=== PATIENT | male | born 1970 | race Caucasian/White ===

== ENCOUNTER 2019-06-13 21:40 | Observation (INO) | payer BC ==
[2019-06-13] MEDS ORDERED: Aspirin 81 MG Tab.Chew PO ONE ×2 (21:53→21:54)
[2019-06-13] MEDS ORDERED: Sodium Chloride 0.9% 1,000 ML IV ONE (21:54)
[2019-06-13] MEDS ORDERED: Sodium Chloride 0.9% 10 ML Syringe FLUSH PRN (21:54)
[2019-06-13] MEDS ORDERED: Nitroglycerin 2% Oint 1 GM UD Packet TOP ONE (21:54)
--- NOTE | 2019-06-13 22:05 | EDM.PDOC ---
ED HPI GENERAL MEDICAL PROBLEM - General Chief Complaint: Chest Pain Stated Complaint: CHEST PAIN Time Seen by Provider: 06/13/19 21:45 Source of Information: Reports: Patient History Limitations: Reports: No Limitations - History of Present Illness INITIAL COMMENTS - FREE TEXT/NARRATIVE: 48 YO WM presents to ER complaining of substernal chest pain which began approximately 2 hours ago. Pt reports he was watching a basketball game when he developed mild chest discomfort. Pt reports he thought it was related to work activity and muscle soreness. Pt was on his way home and began to feel lightheaded and nauseated. became concerned and brought him directly to ER for evaluation. Pt reports symptoms have resolved with minimal discomfort in his chest which he rates as a 2/10. Pt denies sob, or diaphoresis. Pt with PMH of dyslipidemia and HTN. Onset Date: 06/13/19 Onset Time: 20:00 Location: Reports: Chest Quality: Reports: Dull Severity: Mild Improves with: Reports: None Worsens with: Reports: None Associated Symptoms: Reports: Chest Pain, Nausea/Vomiting. Denies: Cough, Diaphoresis, Fever/Chills, Headaches, Shortness of Breath Chest Pain Score (Numeric/FACES): 4 - Related Data Allergies Allergy/AdvReac Type Severity Reaction Status Date / Time No Known Allergies Allergy Verified 06/13/19 21:53 Home Meds: Home Meds lisinopriL [Lisinopril] 10 mg PO DAILY 06/13/19 [History] ED ROS GENERAL - Review of Systems Review Of Systems: See Below Constitutional: Reports: No Symptoms HEENT: Reports: No Symptoms Respiratory: Reports: No Symptoms Cardiovascular: Reports: Chest Pain, Lightheadedness Endocrine: Reports: No Symptoms GI/Abdominal: Reports: Nausea : Reports: No Symptoms Musculoskeletal: Reports: No Symptoms Skin: Reports: No Symptoms Neurological: Reports: No Symptoms Psychiatric: Reports: No Symptoms Hematologic/Lymphatic: Reports: No Symptoms Immunologic: Reports: No Symptoms ED EXAM, GENERAL - Physical Exam Exam: See Below Exam Limited By: No Limitations General Appearance: Alert, WD/WN, No Apparent Distress Nose: Normal Inspection, Normal Mucosa, No Blood Throat/Mouth: Normal Inspection, Normal Lips, Normal Teeth, Normal Gums, Normal Oropharynx, Normal Voice, No Airway Compromise Head: Atraumatic, Normocephalic Neck: Normal Inspection, Supple, Non-Tender, Full Range of Motion Respiratory/Chest: No Respiratory Distress, Lungs Clear, Normal Breath Sounds, No Accessory Muscle Use, Chest Non-Tender Cardiovascular: Normal Peripheral Pulses, Regular Rate, Rhythm, No Edema, No Gallop, No JVD, No Murmur, No Rub GI/Abdominal: Normal Bowel Sounds, Soft, Non-Tender, No Organomegaly, No Distention, No Abnormal Bruit, No Mass Back Exam: Normal Inspection, Full Range of Motion, NT Extremities: Normal Inspection, Normal Range of Motion, Non-Tender, Normal Capillary Refill, No Pedal Edema Neurological: Alert, Oriented, CN II-XII Intact, Normal Cognition, Normal Gait, Normal Reflexes, No Motor/Sensory Deficits Psychiatric: Normal Affect, Normal Mood Skin Exam: Warm, Dry, Intact, Normal Color, No Rash Lymphatic: No Adenopathy EKG INTERPRETATION EKG Date: 06/13/19 Time: 21:41 Rhythm: NSR Rate (Beats/Min): 69 [place]: Normal P-Wave: Present QRS: Normal ST-T: Normal QT: Normal Comparison: NA - No Prior EKG Course - Vital Signs Last Recorded V/S: Last Vital Signs Temp 36.3 C 06/13/19 21:52 Pulse 77 06/13/19 22:24 Resp 16 06/13/19 22:24 BP 144/86 H 06/13/19 22:24 Pulse Ox 99 06/13/19 22:24 - Orders/Labs/Meds Orders: Active Orders 24 hr Category Date Time Status EKG Documentation Completion [RC] ASDIRECTED Care 06/13/19 21:54 Active Peripheral IV Care [RC] . DIRECTED Care 06/13/19 21:54 Active Chest 2V [CR] Stat Exams 06/13/19 21:54 Ordered Sodium Chloride 0.9% [Normal Saline] 1,000 ml Med 06/13/19 21:54 Active IV .BOLUS Sodium Chloride 0.9% [Saline Flush] Med 06/13/19 21:54 Active 10 ml FLUSH Q8HR PRN Peripheral IV Insertion Adult [OM.PC] Routine Oth 06/13/19 21:54 Ordered EKG 12 Lead [EK] Routine Ther 06/13/19 21:54 Ordered Medication Orders Sodium Chloride (Normal Saline) 1,000 mls @ 999 mls/hr IV .BOLUS ONE Stop: 06/13/19 22:54 Last Admin: 06/13/19 22:17 Dose: 999 mls/hr Sodium Chloride (Saline Flush) 10 ml FLUSH Q8HR PRN PRN Reason: keep vein open Labs: Laboratory Tests 06/13/19 06/13/19 Range/Units 21:50 21:50 WBC 7.23 (5.00-10.00) 10^3/uL RBC 4.58 (4.50-6.00) 10^6/uL Hgb 14.2 (13.0-17.0) g/dL Hct 41.1 (40.0-52.0) % MCV 89.7 (82.0-92.0) fL MCH 31.0 (27.0-31.0) pg MCHC 34.5 (32.0-36.0) g/dL RDW 12.5 (11.5-14.5) % Plt Count 222 (150-400) 10^3/uL MPV 8.8 (7.4-10.4) fL Immature Gran % (Auto) 0.3 (0.0-5.0) % Neut % (Auto) 57.9 (50.0-70.0) % Lymph % (Auto) 26.8 (20.0-40.0) % [place] % (Auto) 11.5 H (2.0-8.0) % Eos % (Auto) 2.9 (1.0-3.0) % Baso % (Auto) 0.6 (0.0-1.0) % Immature Gran # (Auto) 0.02 (0.00-0.50) 10^3/uL Neut # (Auto) 4.19 (2.50-7.00) 10^3/uL Lymph # (Auto) 1.94 (1.00-4.00) 10^3/uL [place] # (Auto) 0.83 H (0.10-0.80) 10^3/uL Eos # (Auto) 0.21 (0.10-0.30) 10^3/uL Baso # (Auto) 0.04 (0.00-0.10) 10^3/uL Sodium 143 (136-145) mmol/L Potassium 3.8 (3.3-5.3) mmol/L Chloride 105 (98-115) mmol/L Carbon Dioxide 27.1 (21.0-32.0) mmol/L Anion Gap 14.7 (5-15) mmol/L BUN 19 (6-25) mg/dL Creatinine 1.19 H (0.51-1.17) mg/dL Est Cr Clr Drug Dosing 79.10 mL/min Estimated GFR (MDRD) > 60 mL/min Glucose 93 (75 - 99) mg/dL Calcium 9.2 (8.7-10.3) mg/dL Total Bilirubin 0.4 (0.2-1.0) mg/dL AST 21 (15-37) U/L ALT 28 (12-78) U/L Alkaline Phosphatase 78 (46-116) IU/L Creatine Kinase 179 (26-276) U/L CK-MB (CK-2) 1.50 (0.00-4.30) ng/mL Troponin I 0.05 (0.00-0.070) ng/mL Total Protein 7.4 (6.4-8.2) g/dL Albumin 3.61 (3.00-4.80) g/dL Meds: Medications Generic Name Dose Route Start Last Admin Trade Name Freq PRN Reason Stop Dose Admin Sodium Chloride 1,000 mls @ 999 mls/hr 06/13/19 21:54 06/13/19 22:17 Normal Saline IV 06/13/19 22:54 999 mls/hr .BOLUS ONE Administration Sodium Chloride 10 ml 06/13/19 21:54 Saline Flush FLUSH Q8HR PRN keep vein open Discontinued Medications Generic Name Dose Route Start Last Admin Trade Name Freq PRN Reason Stop Dose Admin Aspirin 324 mg 06/13/19 21:53 06/13/19 22:01 Aspirin PO 06/13/19 21:54 324 mg ONETIME ONE Administration Aspirin 324 mg 06/13/19 21:54 06/13/19 22:16 Aspirin PO 06/13/19 21:55 Not Given ONETIME ONE Nitroglycerin 1 gm 06/13/19 21:54 06/13/19 22:17 Nitro-Bid 2% TOP 06/13/19 21:55 1 gm ONETIME ONE Administration - Radiology Interpretation Free Text/Narrative:: CXR- NAD - Re-Assessments/Exams Free Text/Narrative Re-Assessment/Exam: 06/13/19 22:41 Pt is chest pain free at this time. Discussed recommendation for admission with patient who is agreeable. Discussed with Dr Raj Rodriguez who accepted admission and provided below orders: 1. lovenox 1mg/kg SQ Q12 2. Plavix 75mg PO once 3. Nitropaste 1" Q6 4. repeat Trop I Q4 x 3 Departure - Departure Time of Disposition: 22:43 Disposition: Refer to Observation Condition: Good Clinical Impression: Chest pain Referrals: Terry Morton RENAL DIALYSIS TECHNICIAN [Primary Care Provider] - Forms: ED Department Discharge Sepsis Event Note - Evaluation Sepsis Screening Result: No Definite Risk - Focused Exam Vital Signs: Vital Signs Temp Pulse Resp BP Pulse Ox 06/13/19 22:24 77 16 144/86 H 99 06/13/19 21:52 36.3 C 76 16 135/83 97 Date Exam was Performed: 06/13/19 Time Exam was Performed: 22:41 - My Orders Last 24 Hours: My Active Orders 06/13/19 21:54 EKG Documentation Completion [RC] ASDIRECTED Peripheral IV Care [RC] . DIRECTED Chest 2V [CR] Stat Sodium Chloride 0.9% [Normal Saline] 1,000 ml IV .BOLUS Sodium Chloride 0.9% [Saline Flush] 10 ml FLUSH Q8HR PRN Peripheral IV Insertion Adult [OM.PC] Routine EKG 12 Lead [EK] Routine - Assessment/Plan Last 24 Hours: My Active Orders 06/13/19 21:54 EKG Documentation Completion [RC] ASDIRECTED Peripheral IV Care [RC] . DIRECTED Chest 2V [CR] Stat Sodium Chloride 0.9% [Normal Saline] 1,000 ml IV .BOLUS Sodium Chloride 0.9% [Saline Flush] 10 ml FLUSH Q8HR PRN Peripheral IV Insertion Adult [OM.PC] Routine EKG 12 Lead [EK] Routine Assessment:: 1. Chest Pain Plan: admit for obs- Dr Anthony 1. lovenox 1mg/kg SQ Q12 2. Plavix 75mg PO once 3. Nitropaste 1" Q6 4. repeat Trop I Q4 x 3
[2019-06-13 22:28] LABS: ANION GAP 14.7 mmol/L (5-15); CHLORIDE,CL 105 mmol/L (98-115); SODIUM,NA 143 mmol/L (136-145)
[2019-06-13] MEDS ORDERED: Clopidogrel 75 MG Tab PO ONE (22:53)
[2019-06-14] MEDS: Nitroglycerin 2% Oint 1 GM UD Packet TOP SCH ×2 (00:05→04:26)
--- NOTE | 2019-06-14 07:44 | CR ---
[id number] RAD/RAD Chest PA And Lateral EXAM: FRONTAL AND LATERAL CHEST INDICATION: PAIN COMPARISON: None. DISCUSSION: The lungs are hypoinflated with mild bibasilar atelectasis no definite infiltrates. Gas-filled mildly ectatic bowel loops in the upper abdomen are partially characterized. Normal heart size. IMPRESSION: 1. Low lung volumes with bibasilar atelectasis. Jimmy Fonseca MD 06/14/19 0741 Thank you for allowing us to participate in the care of your patient.
[2019-06-14] MEDS ORDERED: Acetaminophen 325 MG Tab PO ONE (10:21)
--- NOTE | 2019-06-14 12:01 | PCM.DCSUM1 ---
Discharge Summary - Hospital Course Free Text/Narrative:: Date of admission: 06/13/19 Date of discharge: 06/14/19 Admission diagnoses: Chest pain HTN HLD Discharge diagnoses: Chest pain Costochondritis HTN HLD Uvulitis Family history of bicuspid aortic valve Consultations: None Procedures: None Hospital course: Mr. Mehta is a 48yoM with a hx of HTN and HLD who reports that he began having R sternal chest pain in the evening of 06/13/19 after work while watching a basketball game. 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 ED for evaluation. Upon arrival, he reported 2/10 severity pain and was given nitroglycerin and ASA. Pain improved, but was mainly present on palpation of the R side of the sternum. Initial evaluation with CBC, CMP, troponin, EKG, and CXR was normal except for CXR showing bibasilar atelectasis with low lung volumes. He was admitted to observation status for serial troponin measurements and cardiac monitoring. He was given enoxaparin 1mg/kg q12h, clopidogrel 75mg po x1, and nitropaste 1+ q6h. He had no worsening of chest pain, which only was then present with palpation of the R sternal border. No new symptoms except for headache since being started on nitroglycerin and sore throat; headache improved with removal of nitroglycerin and administration of Tylenol; sore throat attributed to uvulitis. Telemetry without concerns. Troponin negative x3. Lipid panel obtained; ASCVD 10-year risk 5.3%. Etiology of chest pain felt to be costochondritis for which supportive cares were discussed. Discharge and follow-up recommendations: - Discharge to home - Medication changes at discharge: - Augmentin 875/125mg po BID x 10 days for uvulitis - Follow-up with PCP Terry Morton APRN-CHRISTINA, within the next week - Recommend echo for screening for bicuspid aortic valve given 1st degree family history in father NOTE: This is a same day admission and discharge. - Discharge Data Discharge Date: 06/14/19 Discharge Disposition: Home, Self-Care 01 Condition: Good - Referral to Home Health Primary Care Physician: Terry Morton NP - Patient Instructions Diet: Heart Healthy Diet Activity: As Tolerated Driving: May Drive Today Showering/Bathing: May Shower Notify Provider of: Fever, Increased Pain - Discharge Plan *PRESCRIPTION DRUG MONITORING PROGRAM REVIEWED*: Not Applicable *COPY OF PRESCRIPTION DRUG MONITORING REPORT IN PATIENT SUZAN: Not Applicable Prescriptions/Med Rec: Amoxicillin/Clavulanate K [Augmentin 875-125 MG] 1 tab PO BID 10 Days #20 tablet Home Medications: Home Meds lisinopriL [Lisinopril] 10 mg PO DAILY 06/13/19 [History] Amoxicillin/Clavulanate K [Augmentin 875-125 MG] 1 tab PO BID 10 Days #20 tablet 06/14/19 [Rx] Referrals: Terry Morton UNIVERSAL WINDING MACHINE OPERATOR [Primary Care Provider] - (Call clinic to schedule appt the week of 06/19/19.) - Discharge Summary/Plan Comment DC Time >30 min.: Yes - Patient Data Vitals - Most Recent: Last Vital Signs Temp 36.2 C 06/14/19 11:00 Pulse 76 06/14/19 11:00 Resp 20 06/14/19 11:00 BP 121/77 06/14/19 11:00 Pulse Ox 96 06/14/19 11:00 Weight - Most Recent: 88.36 kg I&O - Last 24 hours: Intake & Output 06/13/19 06/14/19 06/14/19 22:59 06:59 14:59 Intake Total 125 Balance 125 Lab Results - Last 24 hrs: Laboratory Results - last 24 hr 06/13/19 06/13/19 06/14/19 Range/Units 21:50 21:50 04:20 WBC 7.23 (5.00-10.00) 10^3/uL RBC 4.58 (4.50-6.00) 10^6/uL Hgb 14.2 (13.0-17.0) g/dL Hct 41.1 (40.0-52.0) % MCV 89.7 (82.0-92.0) fL MCH 31.0 (27.0-31.0) pg MCHC 34.5 (32.0-36.0) g/dL RDW 12.5 (11.5-14.5) % Plt Count 222 (150-400) 10^3/uL MPV 8.8 (7.4-10.4) fL Immature Gran % (Auto) 0.3 (0.0-5.0) % Neut % (Auto) 57.9 (50.0-70.0) % Lymph % (Auto) 26.8 (20.0-40.0) % [place] % (Auto) 11.5 H (2.0-8.0) % Eos % (Auto) 2.9 (1.0-3.0) % Baso % (Auto) 0.6 (0.0-1.0) % Immature Gran # (Auto) 0.02 (0.00-0.50) 10^3/uL Neut # (Auto) 4.19 (2.50-7.00) 10^3/uL Lymph # (Auto) 1.94 (1.00-4.00) 10^3/uL [place] # (Auto) 0.83 H (0.10-0.80) 10^3/uL Eos # (Auto) 0.21 (0.10-0.30) 10^3/uL Baso # (Auto) 0.04 (0.00-0.10) 10^3/uL Sodium 143 (136-145) mmol/L Potassium 3.8 (3.3-5.3) mmol/L Chloride 105 (98-115) mmol/L Carbon Dioxide 27.1 (21.0-32.0) mmol/L Anion Gap 14.7 (5-15) mmol/L BUN 19 (6-25) mg/dL Creatinine 1.19 H (0.51-1.17) mg/dL Est Cr Clr Drug Dosing 79.10 mL/min Estimated GFR (MDRD) > 60 mL/min Glucose 93 (75 - 99) mg/dL Calcium 9.2 (8.7-10.3) mg/dL Total Bilirubin 0.4 (0.2-1.0) mg/dL AST 21 (15-37) U/L ALT 28 (12-78) U/L Alkaline Phosphatase 78 (46-116) IU/L Creatine Kinase 179 (26-276) U/L CK-MB (CK-2) 1.50 (0.00-4.30) ng/mL Troponin I 0.05 0.05 (0.00-0.070) ng/mL Total Protein 7.4 (6.4-8.2) g/dL Albumin 3.61 (3.00-4.80) g/dL Triglycerides (30-150) mg/dL Cholesterol (100-199) mg/dL LDL Cholesterol, Calc (0-100) mg/dL HDL Cholesterol (40-60) mg/dL 06/14/19 06/14/19 Range/Units 04:20 08:08 WBC (5.00-10.00) 10^3/uL RBC (4.50-6.00) 10^6/uL Hgb (13.0-17.0) g/dL Hct (40.0-52.0) % MCV (82.0-92.0) fL MCH (27.0-31.0) pg MCHC (32.0-36.0) g/dL RDW (11.5-14.5) % Plt Count (150-400) 10^3/uL MPV (7.4-10.4) fL Immature Gran % (Auto) (0.0-5.0) % Neut % (Auto) (50.0-70.0) % Lymph % (Auto) (20.0-40.0) % [place] % (Auto) (2.0-8.0) % Eos % (Auto) (1.0-3.0) % Baso % (Auto) (0.0-1.0) % Immature Gran # (Auto) (0.00-0.50) 10^3/uL Neut # (Auto) (2.50-7.00) 10^3/uL Lymph # (Auto) (1.00-4.00) 10^3/uL [place] # (Auto) (0.10-0.80) 10^3/uL Eos # (Auto) (0.10-0.30) 10^3/uL Baso # (Auto) (0.00-0.10) 10^3/uL Sodium (136-145) mmol/L Potassium (3.3-5.3) mmol/L Chloride (98-115) mmol/L Carbon Dioxide (21.0-32.0) mmol/L Anion Gap (5-15) mmol/L BUN (6-25) mg/dL Creatinine (0.51-1.17) mg/dL Est Cr Clr Drug Dosing mL/min Estimated GFR (MDRD) mL/min Glucose (75 - 99) mg/dL Calcium (8.7-10.3) mg/dL Total Bilirubin (0.2-1.0) mg/dL AST (15-37) U/L ALT (12-78) U/L Alkaline Phosphatase (46-116) IU/L Creatine Kinase (26-276) U/L CK-MB (CK-2) (0.00-4.30) ng/mL Troponin I 0.05 (0.00-0.070) ng/mL Total Protein (6.4-8.2) g/dL Albumin (3.00-4.80) g/dL Triglycerides 103 (30-150) mg/dL Cholesterol 224 H (100-199) mg/dL LDL Cholesterol, Calc 156 H (0-100) mg/dL HDL Cholesterol 47 (40-60) mg/dL Med Orders - Current: Current Medications Discontinued Medications Acetaminophen (Tylenol) 650 mg PO NOW ONE Stop: 06/14/19 10:22 Last Admin: 06/14/19 10:53 Dose: 650 mg Aspirin (Aspirin) 324 mg PO ONETIME ONE Stop: 06/13/19 21:54 Last Admin: 06/13/19 22:01 Dose: 324 mg Aspirin (Aspirin) 324 mg PO ONETIME ONE Stop: 06/13/19 21:55 Last Admin: 06/13/19 22:16 Dose: Not Given Clopidogrel Bisulfate (Plavix) 75 mg PO ONETIME ONE Stop: 06/13/19 22:54 Last Admin: 06/13/19 23:39 Dose: 75 mg Sodium Chloride (Normal Saline) 1,000 mls @ 999 mls/hr IV .BOLUS ONE Stop: 06/13/19 22:54 Last Admin: 06/13/19 22:17 Dose: 999 mls/hr Nitroglycerin (Nitro-Bid 2%) 1 gm TOP ONETIME ONE Stop: 06/13/19 21:55 Last Admin: 06/13/19 22:17 Dose: 1 gm Nitroglycerin (Nitro-Bid 2%) 1 gm TOP Q6H CHRISTOPHER Last Admin: 06/14/19 04:26 Dose: 1 gm Sodium Chloride (Saline Flush) 10 ml FLUSH Q8HR PRN PRN Reason: keep vein open
--- NOTE | 2019-06-14 12:01 | PCM.HP.2 ---
H&P History of Present Illness - General Date of Service: 06/14/19 Admit Problem/Dx: Chest pain Source of Information: Patient, Family, Old Records History Limitations: Reports: No Limitations - History of Present Illness Initial Comments - Free Text/Narative: Mr. Mehta reports that he began having R sternal chest pain in the evening after work while watching a basketball game. 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 ED for evaluation. Upon arrival, he reported 2/10 severity pain and was given nitroglycerin and ASA. Pain improved, but was mainly present on palpation of the R side of the sternum. Initial evaluation with CBC, CMP, troponin, EKG, and CXR was normal except for CXR showing bibasilar atelectasis with low lung volumes. He was admitted for serial troponin measurements and cardiac monitoring. He was given enoxaparin 1mg/kg q12h, clopidogrel 75mg po x1, and nitropaste 1+ q6h. On rounds this morning, he denies any recurrence of lightheadedness or dizziness and denies any chest pain except for palpation of the R sternal area and certain movements of his RUE. He does complain of headache since placement of the nitro paste. He also has noticed a sore throat with swallowing, which he had occur in the past when he was diagnosed with uvulitis. Denies any recent chest pain or shortness of breath with exertion. 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 Also active outside of work. Chest Pain Score (Numeric/FACES): 3 - Related Data Allergies/Adverse Reactions: Allergies Allergy/AdvReac Type Severity Reaction Status Date / Time No Known Allergies Allergy Verified 06/13/19 21:53 Home Medications: Home Meds lisinopriL [Lisinopril] 10 mg PO DAILY 06/13/19 [History] Amoxicillin/Clavulanate K [Augmentin 875-125 MG] 1 tab PO BID 10 Days #20 tablet 06/14/19 [Rx] Past Medical History Cardiovascular History: Reports: High Cholesterol, Hypertension Genitourinary History: Reports: Renal Calculus - Past Surgical History Male Surgical History: Reports: Renal Calculus Social & Family History - Family History Family Medical History: Noncontributory Cardiac: Reports: None - Tobacco Use Smoking Status *Q: Never Smoker - Recreational Drug Use Recreational Drug Use: No H&P Review of Systems - Review of Systems: Review Of Systems: See Below General: Denies: Fever, Chills, Weakness, Fatigue, Decreased Appetite HEENT: Reports: Headaches, Sore Throat. Denies: Dysphasia, Ear Pain Pulmonary: Denies: Shortness of Breath, Wheezing, Cough Cardiovascular: Denies: Chest Pain, Dyspnea on Exertion, Orthopnea, Edema, Lightheadedness, Syncope Gastrointestinal: Denies: Abdominal Pain, Black Stool, Bloody Stool, Decreased Appetite, Nausea, Vomiting Genitourinary: Denies: Dysuria, Pain, Hematuria Musculoskeletal: Denies: Back Pain, Joint Pain, Joint Swelling Skin: Denies: Jaundice, Rash, Wound Psychiatric: Denies: Confusion, Depression, Anxiety Neurological: Reports: Headache. Denies: Dizziness, Numbness, Tingling Exam - Exam Exam: See Below - Vital Signs Vital Signs: Last Vital Signs Temp 36.2 C 06/14/19 11:00 Pulse 76 06/14/19 11:00 Resp 20 06/14/19 11:00 BP 121/77 06/14/19 11:00 Pulse Ox 96 06/14/19 11:00 Weight: 88.36 kg - Exam Physical Exam Comments:: GENERAL: Well-appearing adult white male sitting on hospital bed in no acute distress. at bedside. HEENT: Normocephalic, atraumatic. Conjunctiva clear. Nares patent without discharge. Mucous membranes moist, posterior pharynx with erythema and prominent uvula without exudate. NECK: Supple, no masses. CV: Regular rate and rhythm, no murmurs, rubs, or gallops. 2+ radial pulses. PULMONARY: Normal effort, clear to auscultation bilaterally, no wheezes, rales, or rhonchi. ABDOMEN: Positive bowel sounds, soft, nontender, nondistended. EXTREMITIES: No edema, cyanosis, or clubbing. MUSCULOSKELETAL: Moves all extremities well. Reproduction of index chest pain with palpation of R upper sternal-costal margin. NEUROLOGICAL: No obvious deficits. DERMATOLOGIC: No rashes or suspicious lesions in exposed areas. PSYCHIATRIC: Alert, interactive, appropriate affect. - Patient Data Lab Results Last 24 hrs: Laboratory Results - last 24 hr 06/13/19 06/13/19 06/14/19 Range/Units 21:50 21:50 04:20 WBC 7.23 (5.00-10.00) 10^3/uL RBC 4.58 (4.50-6.00) 10^6/uL Hgb 14.2 (13.0-17.0) g/dL Hct 41.1 (40.0-52.0) % MCV 89.7 (82.0-92.0) fL MCH 31.0 (27.0-31.0) pg MCHC 34.5 (32.0-36.0) g/dL RDW 12.5 (11.5-14.5) % Plt Count 222 (150-400) 10^3/uL MPV 8.8 (7.4-10.4) fL Immature Gran % (Auto) 0.3 (0.0-5.0) % Neut % (Auto) 57.9 (50.0-70.0) % Lymph % (Auto) 26.8 (20.0-40.0) % Twiggs % (Auto) 11.5 H (2.0-8.0) % Eos % (Auto) 2.9 (1.0-3.0) % Baso % (Auto) 0.6 (0.0-1.0) % Immature Gran # (Auto) 0.02 (0.00-0.50) 10^3/uL Neut # (Auto) 4.19 (2.50-7.00) 10^3/uL Lymph # (Auto) 1.94 (1.00-4.00) 10^3/uL Twiggs # (Auto) 0.83 H (0.10-0.80) 10^3/uL Eos # (Auto) 0.21 (0.10-0.30) 10^3/uL Baso # (Auto) 0.04 (0.00-0.10) 10^3/uL Sodium 143 (136-145) mmol/L Potassium 3.8 (3.3-5.3) mmol/L Chloride 105 (98-115) mmol/L Carbon Dioxide 27.1 (21.0-32.0) mmol/L Anion Gap 14.7 (5-15) mmol/L BUN 19 (6-25) mg/dL Creatinine 1.19 H (0.51-1.17) mg/dL Est Cr Clr Drug Dosing 79.10 mL/min Estimated GFR (MDRD) > 60 mL/min Glucose 93 (75 - 99) mg/dL Calcium 9.2 (8.7-10.3) mg/dL Total Bilirubin 0.4 (0.2-1.0) mg/dL AST 21 (15-37) U/L ALT 28 (12-78) U/L Alkaline Phosphatase 78 (46-116) IU/L Creatine Kinase 179 (26-276) U/L CK-MB (CK-2) 1.50 (0.00-4.30) ng/mL Troponin I 0.05 0.05 (0.00-0.070) ng/mL Total Protein 7.4 (6.4-8.2) g/dL Albumin 3.61 (3.00-4.80) g/dL Triglycerides (30-150) mg/dL Cholesterol (100-199) mg/dL LDL Cholesterol, Calc (0-100) mg/dL HDL Cholesterol (40-60) mg/dL 06/14/19 06/14/19 Range/Units 04:20 08:08 WBC (5.00-10.00) 10^3/uL RBC (4.50-6.00) 10^6/uL Hgb (13.0-17.0) g/dL Hct (40.0-52.0) % MCV (82.0-92.0) fL MCH (27.0-31.0) pg MCHC (32.0-36.0) g/dL RDW (11.5-14.5) % Plt Count (150-400) 10^3/uL MPV (7.4-10.4) fL Immature Gran % (Auto) (0.0-5.0) % Neut % (Auto) (50.0-70.0) % Lymph % (Auto) (20.0-40.0) % Twiggs % (Auto) (2.0-8.0) % Eos % (Auto) (1.0-3.0) % Baso % (Auto) (0.0-1.0) % Immature Gran # (Auto) (0.00-0.50) 10^3/uL Neut # (Auto) (2.50-7.00) 10^3/uL Lymph # (Auto) (1.00-4.00) 10^3/uL Twiggs # (Auto) (0.10-0.80) 10^3/uL Eos # (Auto) (0.10-0.30) 10^3/uL Baso # (Auto) (0.00-0.10) 10^3/uL Sodium (136-145) mmol/L Potassium (3.3-5.3) mmol/L Chloride (98-115) mmol/L Carbon Dioxide (21.0-32.0) mmol/L Anion Gap (5-15) mmol/L BUN (6-25) mg/dL Creatinine (0.51-1.17) mg/dL Est Cr Clr Drug Dosing mL/min Estimated GFR (MDRD) mL/min Glucose (75 - 99) mg/dL Calcium (8.7-10.3) mg/dL Total Bilirubin (0.2-1.0) mg/dL AST (15-37) U/L ALT (12-78) U/L Alkaline Phosphatase (46-116) IU/L Creatine Kinase (26-276) U/L CK-MB (CK-2) (0.00-4.30) ng/mL Troponin I 0.05 (0.00-0.070) ng/mL Total Protein (6.4-8.2) g/dL Albumin (3.00-4.80) g/dL Triglycerides 103 (30-150) mg/dL Cholesterol 224 H (100-199) mg/dL LDL Cholesterol, Calc 156 H (0-100) mg/dL HDL Cholesterol 47 (40-60) mg/dL Result Diagrams: 06/13/19 21:50 06/13/19 21:50 Sepsis Event Note - Evaluation Sepsis Screening Result: No Definite Risk - Focused Exam Vital Signs: Vital Signs Temp Pulse Resp BP BP Pulse Ox Pulse Ox 06/14/19 11:00 36.2 C 76 20 121/77 96 06/14/19 08:50 97 06/14/19 06:00 36.3 C 76 20 122/76 98 06/14/19 03:00 36.8 C 60 18 111/61 97 Date Exam was Performed: 06/17/19 Time Exam was Performed: 15:05 Problem List Initiated/Reviewed/Updated: Yes Orders Last 24hrs: Active Orders 24 hr Category Date Time Status Patient Status [ADT] Routine ADT 06/13/19 22:45 Active Cardiac Monitoring [RC] CONTINUOUS Care 06/13/19 22:51 Active Oxygen Therapy [RC] PRN Care 06/13/19 22:45 Active Ready for Discharge [RC] PER UNIT ROUTINE Care 06/14/19 12:00 Ordered Up ad Brittnee [RC] ASDIRECTED Care 06/13/19 22:45 Active VTE/DVT Education [RC] PER UNIT ROUTINE Care 06/13/19 22:45 Active Vital Signs [RC] 0300,1100,1500,1900,2300 Care 06/13/19 22:45 Active Heart Healthy Diet [DIET] Diet 06/14/19 Breakfast Active Resuscitation Status Routine Resus Stat 06/13/19 22:45 Ordered EKG 12 Lead [EK] Routine Ther 06/13/19 21:54 Stop Req Assessment/Plan Comment:: HPI summary: Mr. Mehta is a 48yoM with a hx of HTN and HLD who reports that he began having R sternal chest pain in the evening of 06/13/19 after work while watching a basketball game. 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 ED for evaluation. ED course: Upon arrival, he reported 2/10 severity pain and was given nitroglycerin and ASA. Pain improved, but was mainly present on palpation of the R side of the sternum. Initial evaluation with CBC, CMP, troponin, EKG, and CXR was normal except for CXR showing bibasilar atelectasis with low lung volumes. He was admitted to observation status for serial troponin measurements and cardiac monitoring. He was given enoxaparin 1mg/kg q12h, clopidogrel 75mg po x1, and nitropaste 1+ q6h. Admission diagnoses: Chest pain HTN HLD Hospital course: He had no worsening of chest pain, which only was then present with palpation of the R sternal border. No new symptoms except for headache since being started on nitroglycerin and sore throat; headache improved with removal of nitroglycerin and administration of Tylenol. Telemetry without concerns. Troponin negative x3. Lipid panel obtained.
== END 2019-06-14 12:30 | disposition home or self-care (01) ==
LOC: KA.ED 21:40 → KA.MS 21:45 → UNDOADMOB 21:45 → UNDODISOB 06-14 12:30
PROVIDERS: ADMIT Physician Assistant Medical; ATTEND Family Medicine
DX: R07.2 Precordial pain (principal); M94.0 Chondrocostal junction syndrome [Tietze]; I10 Essential (primary) hypertension; E78.00 Pure hypercholesterolemia, unspecified; E78.5 Hyperlipidemia, unspecified; K12.2 Cellulitis and abscess of mouth; J98.11 Atelectasis; Z79.899 Other long term (current) drug therapy; Z82.49 Family history of ischemic heart disease and other diseases of the circulatory system
CPT/HCPCS: 36415; 71046; 80053; 80061; 82550; 82553; 84484; 85025; 93005; 96360; 99285-25; A9270-GY; G0378; J7030

== ENCOUNTER 2019-10-04 14:32 | Emergency (ER) | payer BC ==
--- NOTE | 2019-10-04 15:53 | EDM.PDOC ---
ED HPI GENERAL MEDICAL PROBLEM - General Chief Complaint: General Stated Complaint: COVID? Time Seen by Provider: 10/04/19 15:00 Source of Information: Reports: Patient History Limitations: Reports: No Limitations - History of Present Illness INITIAL COMMENTS - FREE TEXT/NARRATIVE: Patient presents with some general concerns of an infected tooth, body aches, fever and concern of possible dehydration. Two weeks ago he started having the achy joints, then a few nights later noticed a lot of sweating. He also broke a cap off a tooth and it became infected. It drained quite a bit of pus and his dentist started him on amoxicillin 1-2 days ago. He had a little diarrhea last night from the amoxicillin he thinks. He says his appetite is low but he is drinking fluids well. He feels low on energy the last several days but says right now is actually the best he has felt in a few days. He had been around a Covid positive co-worker a couple weeks ago so has been tested for Covid twice. The first one was negative and the second one is pending. He has been home in quarantine. We called the testing lab and were informed that there will be no results for another 3-5 days. He says his temperature over the past week has been ranging from 99-101.5 and he controls it with Tylenol. - Related Data Allergies Allergy/AdvReac Type Severity Reaction Status Date / Time No Known Allergies Allergy Verified 06/13/19 21:53 Home Meds: Home Meds lisinopriL [Lisinopril] 10 mg PO DAILY 06/13/19 [History] Amoxicillin 250 mg PO QID 10/04/19 [History] Past Medical History HEENT History: Reports: None Cardiovascular History: Reports: High Cholesterol, Hypertension Respiratory History: Reports: None Gastrointestinal History: Reports: None Genitourinary History: Reports: Renal Calculus Musculoskeletal History: Reports: Fracture Neurological History: Reports: None Psychiatric History: Reports: None Endocrine/Metabolic History: Reports: None Hematologic History: Reports: None Immunologic History: Reports: None Oncologic (Cancer) History: Reports: None Dermatologic History: Reports: None - Infectious Disease History Infectious Disease History: Reports: Chicken Pox - Past Surgical History HEENT Surgical History: Reports: None Cardiovascular Surgical History: Reports: None Respiratory Surgical History: Reports: None GI Surgical History: Reports: None Male Surgical History: Reports: Circumcision, Renal Calculus, Vasectomy Endocrine Surgical History: Reports: None Neurological Surgical History: Reports: None Musculoskeletal Surgical History: Reports: None Oncologic Surgical History: Reports: None Dermatological Surgical History: Reports: None Social & Family History - Family History Family Medical History: Noncontributory Cardiac: Reports: None - Tobacco Use Smoking Status *Q: Never Smoker Second Hand Smoke Exposure: No - Caffeine Use Caffeine Use: Reports: Soda - Recreational Drug Use Recreational Drug Use: No ED ROS GENERAL - Review of Systems Review Of Systems: See Below Constitutional: Reports: Fever, Chills (with night sweats), Malaise (better now) , Weakness, Fatigue, Diaphoresis, Decreased Appetite HEENT: Reports: Dental Pain (lots better now). Denies: Ear Discharge, Ear Pain , Throat Pain, Vision Change Respiratory: Denies: Shortness of Breath (none at all), Cough Cardiovascular: Denies: Chest Pain, Lightheadedness, Syncope GI/Abdominal: Reports: Diarrhea (once last night). Denies: Abdominal Pain, Constipation, Nausea, Vomiting : Denies: Dysuria, Flank Pain Musculoskeletal: Reports: Joint Pain (just general achy joints) Skin: Reports: Diaphoresis. Denies: Cyanosis, Jaundice, Mottled, Pallor Neurological: Denies: Confusion, Dizziness, Headache, Seizure, Syncope, Trouble Speaking, Difficulty Walking Psychiatric: Denies: Agitation, Anxiety, Confusion ED EXAM, GENERAL - Physical Exam Exam: See Below Exam Limited By: No Limitations General Appearance: Alert, WD/WN, No Apparent Distress Eye Exam: Bilateral Eye: EOMI, Normal Inspection, PERRL Ears: Normal External Exam, Normal Canal, Hearing Grossly Normal, Normal TMs Nose: Normal Inspection, No Blood Throat/Mouth: Normal Inspection, Normal Lips, Normal Teeth, Normal Gums, Normal Oropharynx, Normal Voice, No Airway Compromise Head: Atraumatic, Normocephalic Neck: Normal Inspection, Supple, Non-Tender, Full Range of Motion Respiratory/Chest: No Respiratory Distress, Lungs Clear, Normal Breath Sounds, No Accessory Muscle Use Cardiovascular: Regular Rate, Rhythm, No Murmur GI/Abdominal: Normal Bowel Sounds, Soft, Non-Tender, No Organomegaly, No Distention, No Abnormal Bruit Back Exam: Normal Inspection, Full Range of Motion. No: CVA Tenderness (L), CVA Tenderness (R) Extremities: Normal Inspection, Normal Range of Motion Neurological: Alert, Oriented, Normal Cognition, No Motor/Sensory Deficits Psychiatric: Normal Affect, Normal Mood Skin Exam: Warm, Dry, Intact, Normal Color, No Rash Course - Vital Signs Last Recorded V/S: Last Vital Signs Temp 96.1 F L 10/04/19 14:36 Pulse 73 10/04/19 14:36 Resp 18 10/04/19 14:36 BP 113/81 10/04/19 14:36 Pulse Ox 93 L 10/04/19 14:36 - Orders/Labs/Meds Labs: Laboratory Tests 10/04/19 10/04/19 Range/Units 15:45 15:45 WBC 8.30 (5.00-10.00) 10^3/uL RBC 4.67 (4.50-6.00) 10^6/uL Hgb 14.3 (13.0-17.0) g/dL Hct 40.9 (40.0-52.0) % MCV 87.6 (82.0-92.0) fL MCH 30.6 (27.0-31.0) pg MCHC 35.0 (32.0-36.0) g/dL RDW 12.5 (11.5-14.5) % Plt Count 221 (150-400) 10^3/uL MPV 9.1 (7.4-10.4) fL Immature Gran % (Auto) 0.2 (0.0-5.0) % Neut % (Auto) 81.6 H (50.0-70.0) % Lymph % (Auto) 10.4 L (20.0-40.0) % [place]er % (Auto) 7.6 (2.0-8.0) % Eos % (Auto) 0.1 L (1.0-3.0) % Baso % (Auto) 0.1 (0.0-1.0) % Neut # (Auto) 6.77 (2.50-7.00) 10^3/uL Lymph # (Auto) 0.86 L (1.00-4.00) 10^3/uL [place]er # (Auto) 0.63 (0.10-0.80) 10^3/uL Eos # (Auto) 0.01 L (0.10-0.30) 10^3/uL Baso # (Auto) 0.01 (0.00-0.10) 10^3/uL Immature Gran # (Auto) 0.02 (0.00-0.50) 10^3/uL Sodium 137 (136-145) mmol/L Potassium 4.1 (3.3-5.3) mmol/L Chloride 98 (98-115) mmol/L Carbon Dioxide 29.0 (21.0-32.0) mmol/L Anion Gap 14.1 (5-15) mmol/L BUN 16 (6-25) mg/dL Creatinine 1.17 (0.51-1.17) mg/dL Est Cr Clr Drug Dosing 79.55 mL/min Estimated GFR (MDRD) > 60 mL/min Glucose 93 (75 - 99) mg/dL Calcium 9.0 (8.7-10.3) mg/dL - Re-Assessments/Exams Free Text/Narrative Re-Assessment/Exam: 10/04/19 16:31 Labs all okay. Discussed findings and treatment plan with patient. Discharged to home in stable condition. Departure - Departure Time of Disposition: 16:29 Disposition: Home, Self-Care 01 Condition: Good Clinical Impression: Generalized body aches, Fever and chills - Discharge Information Instructions: Fever, Adult, [id number] Referrals: Terry Morton, [employer] [Primary Care Provider] - Forms: ED Department Discharge Additional Instructions: Continue your amoxicillin, plenty of fluids and Tylenol as needed. Continue quarantine until you get the results of the Covid test. Follow up, or call your PCP as needed. Sepsis Event Note (ED) - Evaluation Sepsis Screening Result: No Definite Risk - Focused Exam Vital Signs: Vital Signs Temp Pulse Resp BP Pulse Ox 10/04/19 14:36 96.1 F L 73 18 113/81 93 L
[2019-10-04 16:12] LABS: ANION GAP 14.1 mmol/L (5-15); CHLORIDE,CL 98 mmol/L (98-115); SODIUM,NA 137 mmol/L (136-145)
== END 2019-10-04 16:40 | disposition home or self-care (01) ==
LOC: KA.ED 14:32
DX: R50.9 Fever, unspecified (principal); I10 Essential (primary) hypertension; Z79.899 Other long term (current) drug therapy
CPT/HCPCS: 36415; 80048; 85025; 99283